=== PATIENT | male | born 1930 | race African-American/Black ===

== ENCOUNTER 2021-06-30 06:46 | Emergency (ER) | payer OTHER ==
[~2021-06-30] VITALS: Ht 182.9 cm; Wt 90.7 kg
--- NOTE | ~2021-06-30 | EMS ---
[address] [address] EMS Patient Care Report Name: CELESTINO WHITMORE Room #: DEP MANASA Oliva#: [id number] Admission: 06/30/21 Attend Phys: Discharge: 06/30/21 Date of : [birth year] Report #: [id number] THIS REPORT FOR: //name// Report Transmitted: 07/01/2021 05:26 EMS Care Summary [place], [place]/[facility] Incident [id number] @ 06/30/2021 05:59 Incident Location [id number] [place] [address] A Patient CELESTINO WHITMORE Male, 89 Years 1930 Patient Address [address] [place] [address] Patient History Dementia,Hypertension (HTN),Pacemaker/AICD,Hyperlipidemia,Gastro-Esophageal Reflux Disease (GERD),Thyroid Disease,Diverticulitis,Atrial Fibrillation,Anemia,Chronic Kidney Disease, Patient Allergies No known allergies, Patient Medications Albuterol, Famotidine, Doxazosin, Allopurinol, Metoprolol, Norvasc, Zocor, Eliquis, Synthroid, Chief Complaint Cardiac arrest Disposition Transported [place] Reason Cardiac Arrest/ Transported To [facility] [address] [place] [address] EMS Patient Care Report Name: CELESTINO WHITMORE Room #: DEP Hazel#: [id number] Admission: 06/30/21 Attend Phys: Discharge: 06/30/21 Date of : [birth year] Report #: [id number] Called for a cardiac arrest. Upon arrival, P28 on the scene performing CPR w/BVM. AED was applied, pt was defibrillated upon entering the room via the AED. Pt is currently unresponsive and not breathing and no pulse. DE staff said he his last known well was approx 0330. Zoll applied, pt is in PEA. Mechanical CPR machine applied w/o incident. I/O established and 1.0mg Epi given. EKG now is v-fib and pt was defibrillated again. No pulse present. iGel inserted and confirmed, CPR cont with ventilations cont via BV and iGel. D-stick obtained. Epi x 3 given with no change in rhythm. Pt moved to the EMS cot and loaded into the ambulance w/o incident. CPR cont with mechanical device, ventilations via BV and Epi x 2. RR to the ER. Arrived: pt taken to ER #12 and moved to their bed w/o incident. Pt care & report to ER staff. Initial Vitals @06:25P: 135,R: 11,EtCO2: 32, @06:39P: 116,R: 64,EtCO2: 26, @06:22P: 161,R: 63,EtCO2: 40, @06:37P: 158,R: 51,EtCO2: 23, @06:43P: 162,R: 17, @06:41P: 163,R: 13,EtCO2: 25, @06:42P: 133,R: 79,EtCO2: 24, @06:23P: 93,R: 11,EtCO2: 30, @06:21P: 133, @06:38P: 158,R: 13,EtCO2: 24, @06:28P: 167,R: 9,EtCO2: 35, @06:46P: 163,R: 8,EtCO2: 31, @06:27P: 166,EtCO2: 31, @06:20P: 80, @06:43P: 158,R: 16,EtCO2: 24, @06:27P: 162,R: 78, @06:18P: 163, @06:37P: 162,R: 54,EtCO2: 32, @06:44P: 163,R: 9,EtCO2: 30, @06:16P: 159, @06:17P: 203, @06:17P: 161, @06:31P: 100,R: 11,EtCO2: 29, @06:35P: 163,R: 60,EtCO2: 32, @06:31P: 80,R: 12,EtCO2: 29, @06:24P: 146,R: 0,Pain: 0/10,GCS: 3,Glucose: 320,EtCO2: 30, @06:14P: 149,R: 8,Pain: 0/10,GCS: 3,OK Suspected: false @06:49P: 157,R: 12,Pain: 0/10,GCS: 3,EtCO2: 0,OK Suspected: false Assessments @06:09MENTAL:Unresponsive,SKIN:Cyanotic,HEENT:LUNG SOUNDS:ABDOMEN:PELVIS//GI:Incontinence,EXTREMITIES:PULSE:Femoral: Absent,Carotid: Absent,NEURO: [facility] [address] [place] [address] EMS Patient Care Report Name: CELESTINO WHITMORE Room #: LIBAN Oliva#: [id number] Admission: 06/30/21 Attend Phys: Discharge: 06/30/21 Date of : [birth year] Report #: [id number] Impression Cardiac arrest Procedures @06:09ALS AssessmentResponse: UnchangedSucceeded@06:27Spinal Motion RestrictionResponse: UnchangedSucceeded@06:33StretcherResponse: Unchanged@PTAOxygen FlowRate: 15 Device: Bag Valve Mask (BVM) Response: UnchangedSucceeded@06:23iGEL Complications: None,Response: UnchangedSucceeded@06:19Normal Saline (.9% NaCl) 50cc (EZ-IO (Yellow 45mm)) Site: CB-Rwgzcyw-AzttoDbfiydfg: UnchangedSucceeded@PTAResponse: UnchangedSucceeded@06:17Response: UnchangedSucceeded@06:43Epinephrine 1:10 - 1 Milligrams (mg) - Intraosseous (IO)Response: Unchanged@06:37Epinephrine 1:10 - 1 Milligrams (mg) - Intraosseous (IO)Response: Unchanged@06:31Epinephrine 1:10 - 1 Milligrams (mg) - Intraosseous (IO)Response: Unchanged@06:23Epinephrine 1:10 - 1 Milligrams (mg) - Intraosseous (IO)Response: Improved@06:11Response: UnchangedSucceeded@06:27Epinephrine 1:10 - 1 Milligrams (mg) - Intraosseous (IO)Response: Unchanged@06:20Epinephrine 1:10 - 1 Milligrams (mg) - Intraosseous (IO)Response: Unchanged Timeline TRANSPLANT RN,Oxygen FlowRate: 15 Device: Bag Valve Mask (BVM) Response: UnchangedSucceeded, TRANSPLANT RN,Response: UnchangedSucceeded, 05:58,Call Received 05:58,Dispatch Notified 05:59,Dispatched 06:02,En Route 06:08,On Scene 06:09,At Patient 06:09,ALS Assessment,Response: UnchangedSucceeded, 06:11,Response: UnchangedSucceeded, 06:14,BP: / M,PULSE: 149,RR: 8 R,SPO2: Ox,ETCO2: ,BG: ,PAIN: 0,GCS: 3, 06:16,BP: / M,PULSE: 159,RR: R,SPO2: Ox,ETCO2: ,BG: ,PAIN: ,GCS: , 06:17,BP: / M,PULSE: 161,RR: R,SPO2: Ox,ETCO2: ,BG: ,PAIN: ,GCS: , 06:17,Response: UnchangedSucceeded, 06:17,BP: / M,PULSE: 203,RR: R,SPO2: Ox,ETCO2: ,BG: ,PAIN: ,GCS: , 06:18,BP: / M,PULSE: 163,RR: R,SPO2: Ox,ETCO2: ,BG: ,PAIN: ,GCS: , 06:19,Normal Saline (.9% NaCl) 50cc EZ-IO (Yellow 45mm) Site: YT-Bvglwfj-Qdkhe,Response: UnchangedSucceeded, 06:20,BP: / M,PULSE: 80,RR: R,SPO2: Ox,ETCO2: ,BG: ,PAIN: ,GCS: , 06:20,Epinephrine 1:10 - 1 Milligrams (mg) - Intraosseous (IO),Response: Unchanged 06:21,BP: / M,PULSE: 133,RR: R,SPO2: Ox,ETCO2: ,BG: ,PAIN: ,GCS: , 06:22,BP: / M,PULSE: 161,RR: 63 R,SPO2: Ox,ETCO2: 40 ,BG: ,PAIN: ,GCS: , 06:23,iGEL Complications: None,,Response: UnchangedSucceeded, [facility] [address] [place] [address] EMS Patient Care Report Name: CELESTINO WHITMORE Room #: DEP Hazel#: [id number] Admission: 06/30/21 Attend Phys: Discharge: 06/30/21 Date of : [birth year] Report #: [id number] 06:23,BP: / M,PULSE: 93,RR: 11 R,SPO2: Ox,ETCO2: 30 ,BG: ,PAIN: ,GCS: , 06:23,Epinephrine 1:10 - 1 Milligrams (mg) - Intraosseous (IO),Response: Improved 06:24,BP: / M,PULSE: 146,RR: 0 R,SPO2: Ox,ETCO2: 30 ,B,PAIN: 0,GCS: 3, 06:25,BP: / M,PULSE: 135,RR: 11 R,SPO2: Ox,ETCO2: 32 ,BG: ,PAIN: ,GCS: , 06:27,Spinal Motion Restriction,Response: UnchangedSucceeded, 06:27,BP: / M,PULSE: 166,RR: R,SPO2: Ox,ETCO2: 31 ,BG: ,PAIN: ,GCS: , 06:27,Epinephrine 1:10 - 1 Milligrams (mg) - Intraosseous (IO),Response: Unchanged 06:27,BP: / M,PULSE: 162,RR: 78 R,SPO2: Ox,ETCO2: ,BG: ,PAIN: ,GCS: , 06:28,BP: / M,PULSE: 167,RR: 9 R,SPO2: Ox,ETCO2: 35 ,BG: ,PAIN: ,GCS: , 06:31,Epinephrine 1:10 - 1 Milligrams (mg) - Intraosseous (IO),Response: Unchanged 06:31,BP: / M,PULSE: 80,RR: 12 R,SPO2: Ox,ETCO2: 29 ,BG: ,PAIN: ,GCS: , 06:31,BP: / M,PULSE: 100,RR: 11 R,SPO2: Ox,ETCO2: 29 ,BG: ,PAIN: ,GCS: , 06:33,Stretcher,Response: Unchanged 06:35,BP: / M,PULSE: 163,RR: 60 R,SPO2: Ox,ETCO2: 32 ,BG: ,PAIN: ,GCS: , 06:37,BP: / M,PULSE: 162,RR: 54 R,SPO2: Ox,ETCO2: 32 ,BG: ,PAIN: ,GCS: , 06:37,Epinephrine 1:10 - 1 Milligrams (mg) - Intraosseous (IO),Response: Unchanged 06:37,BP: / M,PULSE: 158,RR: 51 R,SPO2: Ox,ETCO2: 23 ,BG: ,PAIN: ,GCS: , 06:37,Depart Scene 06:38,BP: / M,PULSE: 158,RR: 13 R,SPO2: Ox,ETCO2: 24 ,BG: ,PAIN: ,GCS: , 06:39,BP: / M,PULSE: 116,RR: 64 R,SPO2: Ox,ETCO2: 26 ,BG: ,PAIN: ,GCS: , 06:41,BP: / M,PULSE: 163,RR: 13 R,SPO2: Ox,ETCO2: 25 ,BG: ,PAIN: ,GCS: , 06:42,BP: / M,PULSE: 133,RR: 79 R,SPO2: Ox,ETCO2: 24 ,BG: ,PAIN: ,GCS: , 06:43,Epinephrine 1:10 - 1 Milligrams (mg) - Intraosseous (IO),Response: Unchanged 06:43,BP: / M,PULSE: 158,RR: 16 R,SPO2: Ox,ETCO2: 24 ,BG: ,PAIN: ,GCS: , 06:43,BP: / M,PULSE: 162,RR: 17 R,SPO2: Ox,ETCO2: ,BG: ,PAIN: ,GCS: , 06:44,At Destination 06:44,BP: / M,PULSE: 163,RR: 9 R,SPO2: Ox,ETCO2: 30 ,BG: ,PAIN: ,GCS: , 06:46,BP: / M,PULSE: 163,RR: 8 R,SPO2: Ox,ETCO2: 31 ,BG: ,PAIN: ,GCS: , 06:49,BP: / M,PULSE: 157,RR: 12 R,SPO2: Ox,ETCO2: 0 ,BG: ,PAIN: 0,GCS: 3, 07:17,Call Closed Disclaimer v1.1 Copyright 2020 [employer] This EMS Care Summary contains data elements from the applicable legal record (which may be displayed differently). It is designed to provide pertinent information for the following purposes: continuity of care, clinical quality, and state data reporting. The complete legal record is available to ED staff and administrators of the receiving hospital in [employer]'s Patient Tracker. All data is provided "as is."
== END 2021-06-30 06:55 ==
LOC: ER 06:46
DX: I46.9 Cardiac arrest, cause unspecified (principal)